=== PATIENT | female | born 1990 | race Caucasian/White ===

== ENCOUNTER 2018-11-22 11:29 | Emergency (ER) | payer MEDICAID ==
[~2018-11-22] VITALS: Ht 157.5 cm; Wt 59.4 kg
[2018-11-22 12:17] VITALS: Ht 157.5 cm; Wt 59.4 kg
[2018-11-22 14:15] LABS: BASOPHIL % 0.4 % (0-2); PLATELET COUNT 251 x10^3mcL (130-400); RED CELL DISTRIBUTION WIDTH 12.6 % (11.5-14.5)
[2018-11-22 14:17] LABS: microscopic required? YES; urine erythrocyte 3+ (NEGATIVE)
[2018-11-22 16:56] VITALS: BP 148/59
== END 2018-11-22 16:56 | disposition home or self-care (01) ==
LOC: ED 11:29
PROVIDERS: Emergency Medicine
DX: O20.0 Threatened abortion (principal)
CPT/HCPCS: 36415

== ENCOUNTER 2018-11-24 06:06 | Emergency (ER) | payer MEDICAID | END 2018-11-24 07:55 | disposition home or self-care (01) | LOC: ED 06:06 ==